=== PATIENT | male | born 1960 | race Caucasian/White ===

== ENCOUNTER 2017-01-26 06:18 | Day surgery (SDC) | payer BC ==
[2017-01-20 17:03] VITALS: BMI 34.2
[~2017-01-26] VITALS: Ht 177.8 cm; Wt 110.2 kg
[2017-01-26] VITALS (13 sets, daily range): BP systolic 112–137; BP diastolic 69–79; PULSE 58–74; RESP 10–24; Ht 177.8 cm; Wt 110.2 kg
[~2017-01-26 06:18] MED LIST: ASPI-699 PO; CLOP75TA27 PO; ROSU40TA35 PO; UBID1CAP25 PO
[2017-01-26 07:00] LABS: BASOPHIL # 0.1 10^3/ul (0.0-0.1); BASOPHILS % 0.7 % (0.0-2.0); EOSINOPHILS # 0.2 10^3/ul (0.0-0.5); EOSINOPHILS % 1.7 % (0.0-7.0); HEMATOCRIT 45.3 % (42.0-52.0); LYMPHOCYTES # 2.4 10^3/ul (0.8-2.9); LYMPHOCYTES % 24.1 % (15.0-51.0); MEAN CORPUSCULAR HEMOGLOBIN 32.5 pg (29.0-33.0); MEAN CORPUSCULAR HGB CONC 35.3 g/dl (32.0-37.0); MEAN CORPUSCULAR VOLUME 92.1 fl (82.0-101.0); MONOCYTE # 0.8 10^3/ul (0.3-0.9); MONOCYTES % 7.9 % (0.0-11.0); NEUTROPHIL # 6.4 10^3/ul (1.6-7.5); NEUTROPHILS % 65.3 % (39.0-77.0); PLATELET COUNT 218 10^3/UL (140-415); RED BLOOD COUNT 4.92 10^6/ul (4.70-6.10); RED CELL DISTRIBUTION WIDTH 12.4 % (11.5-14.5); WHITE BLOOD COUNT 9.8 10^3/ul (4.8-10.8)
[2017-01-26] MEDS ORDERED: POLYMYXIN/BACITRACIN 1L IRRIG ONE (07:11)
[2017-01-26] MEDS ORDERED: NEOMYC/POLYMYX/BACIT 30 GM OINT ONE (07:11)
[2017-01-26] MEDS ORDERED: BUPIVACAINE 0.25% (MPF) 30 ML INJ ONE (07:11)
[2017-01-26 07:19] LABS: INR 0.85; PROTIME 11.6 Sec (12.2-14.2); PT RATIO 0.9
[2017-01-26 07:20] LABS: PARTIAL THROMBOPLASTIN TIME 27.2 Sec (25.0-35.0)
--- NOTE | 2017-01-26 07:20 | HPN ---
Date/Time of Note Date/Time of Note DATE: 01/26/17 TIME: 07:20 Interval H&P Admission Note Pt. seen H&P reviewed: No system changes NIGEL RENDON MD Jan 26, 2017 07:20
[2017-01-26 07:22] LABS: CALCIUM 9.2 mg/dl (8.4-10.2); CREATININE 0.97 mg/dl (0.61-1.24); POTASSIUM 4.1 mmol/L (3.5-5.1)
--- NOTE | 2017-01-26 07:28 | RADRPT ---
PROCEDURE: XR Chest. CLINICAL INDICATION: Preoperative. TECHNIQUE: Single frontal view. COMPARISON: None. FINDINGS: The lungs are clear. The heart size is normal. There is no pleural effusion. There is no pneumothorax. IMPRESSION: 1. Normal chest radiograph. RPTAT: QQ .Víctor Lazo MD, Date Time Electronically viewed and signed by .Víctor Lazo MD, on 01/26/2017 07:28 .R/
[2017-01-26] MEDS ORDERED: morphine 2 MG INJ IV PRN (07:30)
[2017-01-26] MEDS ORDERED: LIDOCAINE 2% (SDV) 5 ML INJ ONE (07:32)
[2017-01-26] MEDS ORDERED: MIDAZOLAM 1 MG/ML 2 ML INJ ONE (07:32)
[2017-01-26] MEDS ORDERED: PROPOFOL 0 ML ONE (07:32)
[2017-01-26] MEDS ORDERED: LIDOCAINE 1% (MDV) 20 ML INJ ONE (07:34)
[2017-01-26] MEDS ORDERED: ROPIVACAINE 0.5 % 30 ML VIAL ONE (07:35)
[2017-01-26] MEDS ORDERED: FENTAnyl 50 MCG/ML VIAL ONE (07:43)
[2017-01-26] MEDS ORDERED: PROPOFOL 100 ML ONE (07:56)
[2017-01-26] MEDS ORDERED: CEFAZOLIN 1 GM INJ ONE (07:57)
[2017-01-26] MEDS ORDERED: DIPHENHYDRAMINE 50 MG INJ IV PRN (08:30)
[2017-01-26] MEDS ORDERED: OXYCODONE/ACETAMINOPHEN (5/325) TAB PO PRN ×2 (08:30)
[2017-01-26] MEDS ORDERED: PROCHLORPERAZINE 10 MG INJ IV PRN (08:30)
[2017-01-26] MEDS ORDERED: MEPERIDINE 25 MG INJ IV PRN (08:30)
[2017-01-26] MEDS ORDERED: FENTAnyl 50 MCG/ML VIAL IV PRN ×3 (08:30)
[2017-01-26] MEDS ORDERED: HYDROmorphONE (0.2 MG/ML) 10ML SYG IV PRN ×3 (08:30)
[2017-01-26] MEDS ORDERED: ONDANSETRON 4 MG INJ IV PRN (08:30)
--- NOTE | 2017-01-26 09:39 | OPR ---
Date/Time of Note Date/Time of Note DATE: 01/26/17 TIME: 09:35 Operative Report Procedure Date: Jan 26, 2017 Preoperative Diagnosis Right foot grade 3 hallux rigidus Postoperative Diagnosis Right foot grade 3 hallux rigidus Operation/Procedure Performed Right foot first mtp joint cheilectomy with Cartiva implant Surgeon Maurice Rendon MD Adjuster Leader none Anesthesia Type: MAC, other (Ankle block) Anesthesiologist: CHINTAN CRUZ MD Tourniquet Time: 46 min at 250 mm Hg Estimated Blood Loss: minimal Transfusion none Specimen none Grafts/Implants Cartiva Implant Complications none Pt Condition Post Procedure: stable Disposition: PACU Indications Patient is a 56-year-old gentleman with a ongoing history of hallux rigidus grade 3 who has ongoing pain and limited range of motion at his right first MTP joint. We have tried nonoperative management including cortisone injections as well as physical therapy however patient continued has pain. Patient would like to proceed with Cartiva implant. He is aware that this device is new and has only 5 years of data which does show improved pain and range of motion. He is aware that he may require a second surgery in the future such as a fusion to treat the pain if the pain does not resolve with the surgery. Risk note: Patient was met in the risks and benefits of surgery patient three affiliated language, including but not limited to infection, bleeding, risk of injury to blood vessels and nerves ligaments or tendons; loss of limb, loss of life and need for future surgery. Patient acknowledges risk by signing the surgical consent form. Procedure Description Patient was met in the preoperative holding area and the correct operative site was confirmed with both patient and with consent. Correct operative site was marked. Patient was then given a regional block anesthesia and then brought to the operative theater placed supine on the operative table. Patient was then given preoperative antibiotics. Patient was then prepped and draped in the normal sterile fashion and a timeout was taken. All parties in the room agreed is correct patient, extremity and patient. Esmarch was brought up to 250 mmHg and a dorsal medial incision was made over the first MTP joint exposing the capsule with care to avoid any neurovascular injury. EHL tendon was protected during the approach and the joint was then entered. Extensive dorsal osteophytes were seen and a loose dorsal osteophyte was found over the lateral aspect of the proximal phalanx and removed. There was a gentle release of the soft tissues of the lateral medial compartment to ensure enough exposure for allow implant implementation of the device. There was an initial resection of osteophytes the proximal phalanx and metatarsal head with care taken to avoid removing too much in order to ensure there is adequate dorsal bone stock preservation. Metatarsal head was identified and a large loss of chondral denudation was found on the dorsal aspect of the metatarsal head. Using the concave end of the placar to ensure it was centered in the medial lateral plane and create a perpendicular angle the metatarsal head placar are was positioned centrally over the worst area of arthritic involvement on the metatarsal head. The guidepin was drilled in central of the metatarsal head and identified to be in the middle of the metatarsal head both centrally on the dorsal and plantar position and the medial lateral position on the fluoroscopy view of AP and lateral. The guidepin was left in and using a cannulated drill bit metatarsal head and cavity was then created and the drill site was flushed out and all debris was removed from the metatarsal head. Implant was prepared on the back table using a typical sized Cartiva. The implant was then inserted with the introducer tube at the implant site perpendicular to the metatarsal head. The implant sat proud of approximately 1.5-2.5 mm the wound was irrigated thoroughly and the dorsal aspect of the metatarsal head was smoothed down with a oscillating rasp and wound was irrigated thoroughly again. The capsule was then closed with 2-0 Vicryl followed by 3-0 Monocryl followed by sub-dermal stitches with 3-0 Monocryl and skin closure with 4-0 nylon in a vertical mattress fashion. The wounds were dressed with Xeroform triple antibiotic ointment 4 x 4's ABDs and placed in a well-padded foot strapping wrap. Patient was then placed interstitial shoe. At the end of the case all sponge needle counts were correct. Patient by the PACU in stable condition and the toes are finally warm and well-perfused. MAURICE RENDON MD Jan 26, 2017 09:39
--- NOTE | 2017-01-26 10:32 | RADRPT ---
PROCEDURE: Intraoperative imaging of the right foot with fluoroscopy. CLINICAL INDICATION: Right foot pain. Intraoperative. TECHNIQUE: Four images of the right foot were obtained in the operating room with an image intensi fier. No radiologist was in attendance. Fluoroscopy time is 23 seconds. COMPARISON: No prior study is available for comparison. FINDINGS: Images demonstrate placement of an implant in the right first metatarsal phalangeal joint. IMPRESSION: 1. Intraoperative imaging of the right foot. RPTAT: QQ .Víctor Lazo MD, Date Time Electronically viewed and signed by .Víctor Lazo MD, on 01/26/2017 10:32 .R/
== END 2017-01-26 11:15 | disposition home or self-care (01) ==
LOC: SDS 06:18
PROVIDERS: ATTEND Orthopaedic Surgery
DX: M20.21 Hallux rigidus, right foot (principal)
CPT/HCPCS: 28291; 71010; 73630; 80048; 85025; 85610; 85730; J0690; J2250; J2795; J3010